=== PATIENT | male | born 1945 | race Caucasian/White ===

== ENCOUNTER 2020-03-16 15:21 | Emergency (ER) | payer MEDICARE, OTHER ==
[~2020-03-16] VITALS: Ht 193 cm; Wt 90.7 kg
[2020-03-16] MEDS ORDERED: METOPROLOL SUCC25 MG PO (15:39)
[2020-03-16] MEDS ORDERED: ZOCOR40 MG PO (15:40)
[2020-03-16] MEDS ORDERED: JANTOVEN2 MG PO (15:40)
[2020-03-16] MEDS ORDERED: PREDNISONE20 MG PO (16:00)
== END 2020-03-16 16:23 | disposition home or self-care (01) ==
LOC: ED 15:21
DX: S80.12XA Contusion of left lower leg, initial encounter (principal); M10.9 Gout, unspecified; W22.8XXA Striking against or struck by other objects, initial encounter; Z88.2 Allergy status to sulfonamides; Z79.899 Other long term (current) drug therapy; Z79.01 Long term (current) use of anticoagulants
CPT/HCPCS: 99283; J7512